=== PATIENT | female | born 1990 | race African-American/Black ===

== ENCOUNTER 2017-05-15 08:45 | Emergency (ER) | payer BC, OTHER ==
[~2017-05-15] VITALS: Ht 165.1 cm; Wt 67.1 kg
[2017-05-15 09:20] LABS: ABSOLUTE NEUTROPHILS 15.6 thou/uL (1.4-8.2); BASOPHILS 0.2 % (0.0-2.0); EOSINOPHILS 0.1 % (0.0-3.0); HEMOGLOBIN 12.7 gm/dL (12.0-15.0); LYMPHOCYTES 4.6 % (24.0-44.0); MCH 29.4 pg (26.0-34.0); MCHC 34.2 g/dL (28.0-37.0); MCV 85.9 fL (80.0-100.0); MONOCYTES 7.5 % (1.0-8.0); PLATELET COUNT 186 thou/uL (150-400); POLYS 87.6 % (36.0-66.0); RBC 4.31 mil/uL (4.20-5.00); RDW 12.8 % (10.5-14.5); WBC 17.8 thou/uL (4.0-11.0)
[2017-05-15 09:27] LABS: CREATININE 1.1 mg/dL (0.6-1.0); POTASSIUM 3.2 mmol/L (3.5-5.1)
[2017-05-15 09:33] LABS: ALBUMIN 3.5 g/dL (3.4-5.0); TOTAL BILIRUBIN 1.1 mg/dL (<0.1-1.0); TOTAL PROTEIN 7.6 g/dL (6.4-8.2)
[2017-05-15 09:57] LABS: URINE BILIRUBIN NEGATIVE (Negative); URINE BLOOD 1+ (Negative); URINE COLOR YELLOW; URINE GLUCOSE-RANDOM* NEGATIVE (Negative); URINE KETONES 3+ (Negative); URINE LEUKOCYTES 3+ (Negative); URINE NITRITE POSITIVE (Negative); URINE PROTEIN (DIPSTICK) 1+ (Negative)
[2017-05-15 09:59] LABS: URINE CLARITY HAZY
[2017-05-15 10:04] LABS: BACTERIA >30 Many /HPF (None Seen); CASTS None Seen /LPF (None Seen); CRYSTALS None Seen /LPF (None Seen); SQUAMOUS 0-3 Few /LPF (0-3); URINE RBC 3-10 Few /HPF (0-2); URINE WBC >25 Many /HPF (0-5)
[2017-05-15] MEDS ORDERED: BACTRIM DS TAB1 EACH PO (11:45)
[2017-05-15] MEDS ORDERED: ONDANSETRON HCL4 M2 PO (11:45)
[2017-05-15 11:57] VITALS: BP 93/46
== END 2017-05-15 11:56 | disposition home or self-care (01) ==
LOC: ER 08:45
PROVIDERS: Physician Assistant
DX: N12 Tubulo-interstitial nephritis, not specified as acute or chronic (principal); N30.90 Cystitis, unspecified without hematuria; E87.6 Hypokalemia

== ENCOUNTER 2017-05-15 15:55 | Inpatient (IN) | payer BC, OTHER ==
[~2017-05-15] VITALS: Ht 165.1 cm; Wt 70.3 kg
--- NOTE | ~2017-05-15 | 2DMMODE ---
[facility] [address] [place] [address] 2 D/M-MODE ECHOCARDIOGRAM Name: RODGER MCQUEEN Room #: 363-P ADM IN M.R.#: [id number] Admission: 05/15/17 Attend Phys: Royce Westbrook, Discharge: Date of : 89 Date of Service: 05/18/17 1606 Report #: [id number] THIS REPORT FOR: //name// APPROVED REPORT Study performed: 05/18/2017 14:53:54 EXAM: Comprehensive 2D, Doppler, and color-flow Echocardiogram Patient Location: Bedside Room #: 363 BSA: 1.77 HR: 58 bpm Rhythm: NSR/ Irregular Other Information Study Quality: Good Indications Palpitations Chest Pain Ventricular Bigemini 2D Dimensions RVDd: 39.77 mm LVEF(%): 58.24 (>50%) IVSd: 7.97 (7-11mm) LVOT Diam: 19.60 (18-24mm) LVDd: 46.68 mm PWd: 8.51 (7-11mm) Ascending Ao: 27.11 (22-36mm) LVDs: 32.35 (25-40mm) Aortic Root: 31.15 mm IVC: 21.00 mm TAPSE: 2.40 (<1.7) Fuentes's LVEF: 58.24 % Volumes Left Atrial Volume (Systole) Single Plane 4CH: 47.42 mL Single Plane 2CH: 41.41 mL LA ESV Index: 28.00 mL/m2 Aortic Valve AoV Peak Néstor.: 1.66 m/s AO Peak Gr.: 10.99 mmHg LVOT Max P.96 mmHg LVOT Max V: 1.11 m/s SANDRA Vmax: 2.03 cm2 [facility] [address] [place] [address] 2 D/M-MODE ECHOCARDIOGRAM Name: RICHARRODGER Room #: 363-[facility] IN M.R.#: [id number] Admission: 05/15/17 Attend Phys: Royce Westbrook, Discharge: Date of : 89 Date of Service: 05/18/17 1606 Report #: [id number] Mitral Valve E/A Ratio: 1.6 MV Decel. Time: 215.06 ms MV E Max Néstor.: 1.18 m/s MV A Néstor.: 0.72 m/s MV PHT: 62.37 ms IVRT: 69.20 ms Pulmonary Valve PV Peak Néstor.: 1.05 m/s PV Peak Gr.: 4.55 mmHg Pulmonary Vein P Vein S: 0.80 m/s P Vein A: 0.25 m/s P Vein D: 0.49 m/s P Vein A Dur.: 96.9 msec P Vein S/D Ratio: 1.63 Tricuspid Valve TR Peak Néstor.: 2.69 m/s RAP Estimate: 10.00 mmHg TR Peak Gr.: 28.91 mmHg PA Pressure: 39.00 mmHg Left Ventricle The left ventricle is normal size. There is normal LV segmental wall motion. There is normal left ventricular wall thickness. The left ventricular systolic function is normal. LVEF is 55-60%. The left ventricular diastolic function is normal. Right Ventricle The right ventricle is normal size. The right ventricular systolic function is normal. Atria The left atrium size is normal. The right atrium size is normal. Aortic Valve The aortic valve is normal in structure. No aortic regurgitation is present. There is no aortic valvular stenosis. Mitral Valve The mitral valve is normal in structure. There is no mitral valve regurgitation noted. No evidence of mitral valve stenosis. Tricuspid Valve The tricuspid valve is normal in structure. Trace to mild tricuspid regurgitation. [facility] [address] [place] [address] 2 D/M-MODE ECHOCARDIOGRAM Name: RODGER MCQUEEN Room #: 363-P ADM IN M.R.#: [id number] Admission: 05/15/17 Attend Phys: Royce Westbrook, Discharge: Date of : 89 Date of Service: 05/18/17 1606 Report #: [id number] Pulmonic Valve The pulmonary valve is normal in structure. Trace pulmonic regurgitation. Great Vessels The aortic root is normal in size. The ascending aorta is normal in size. IVC is dilated and collapses >50% with inspiration. Pericardium Trace to small pericardial effusion. <Conclusion> The left ventricular systolic function is normal. There is normal LV segmental wall motion. LVEF is 55-60%. Normal diastolic function Structural valve disease was absent. No significant regurgitant or stenotic lesions Trace to small pericardial effusion. <ELECTRONICALLY SIGNED> By: Rich Engel MD, [facility] 05/18/17 1606 1606 1606 Rich Engel MD, FAC /INF
--- NOTE | ~2017-05-15 | EKG ---
[address] [address] ELECTROCARDIOGRAM REPORT Name: RICHARRODGER Room #: 363-P ADM IN M.R.#: [id number] Admission: 05/15/17 Attend Phys: Royce Westbrook MD Discharge: Date of : 89 Report #: [id number] THIS REPORT FOR: //name// [facility] Test Date: 2017-05-18 Test Time: 11:44:20 Pat Name: RODGER MCQUEEN Department: Room: 363 P Gender: F Can Piler: sree : 1990 Requested By: Royce Westbrook Order Number: [id number] MD: Measurements Intervals [place] Rate: 46 P: 27 TN: 143 QRS: 62 QRSD: 103 T: 14 QT: 450 QTc: 394 Interpretive Statements Sinus bradycardia Supraventricular bigeminy Borderline T wave abnormalities Baseline wander in lead(s) V3,V4,V5 No previous ECG available for comparison [email or web address] By: [id number] 1144 Epiphany EpiphanyMD /EPI
[~2017-05-15 15:55] MED LIST: BACTRIM DS TAB1 EACH PO; ONDANSETRON HCL4 M2 PO
[2017-05-15 16:38] LABS: HEMATOCRIT 33.4 % (37.0-47.0); HEMOGLOBIN 11.6 gm/dL (12.0-15.0); MCH 29.6 pg (26.0-34.0); MCHC 34.8 g/dL (28.0-37.0); MCV 85.2 fL (80.0-100.0); PLATELET COUNT 170 thou/uL (150-400); RBC 3.92 mil/uL (4.20-5.00); RDW 12.6 % (10.5-14.5); WBC 16.8 thou/uL (4.0-11.0)
[2017-05-15 16:46] LABS: CALCIUM 8.4 mg/dL (8.5-10.1); CREATININE 1.1 mg/dL (0.6-1.0); POTASSIUM 3.2 mmol/L (3.5-5.1)
[2017-05-15 16:51] LABS: TOTAL BILIRUBIN 0.9 mg/dL (<0.1-1.0); TOTAL PROTEIN 6.8 g/dL (6.4-8.2)
[2017-05-15 17:09] VITALS: BP 78/37
[2017-05-15 17:15] VITALS: BP 105/61
[2017-05-15 17:28] LABS: ABSOLUTE NEUTROPHILS 15.8 thou/uL (1.4-8.2)
[2017-05-15 20:00] VITALS: BP 96/60
[2017-05-15 23:25] VITALS: BP 112/76
[2017-05-16 03:20] VITALS: BP 114/68
[2017-05-16 05:54] LABS: MCH 29.8 pg (26.0-34.0); WBC 15.9 thou/uL (4.0-11.0)
[2017-05-16 05:55] LABS: BASOPHILS 0.1 % (0.0-2.0); HEMATOCRIT 30.9 % (37.0-47.0); HEMOGLOBIN 10.7 gm/dL (12.0-15.0); LYMPHOCYTES 3.8 % (24.0-44.0); MCHC 34.6 g/dL (28.0-37.0); MCV 86.3 fL (80.0-100.0); MONOCYTES 7.9 % (1.0-8.0); PLATELET COUNT 161 thou/uL (150-400); POLYS 88.2 % (36.0-66.0); RBC 3.58 mil/uL (4.20-5.00); RDW 13.1 % (10.5-14.5)
[2017-05-16 06:04] LABS: CALCIUM 7.8 mg/dL (8.5-10.1); CREATININE 0.9 mg/dL (0.6-1.0); MAGNESIUM 1.7 mg/dL (1.8-2.4); POTASSIUM 3.5 mmol/L (3.5-5.1)
[2017-05-16 08:32] VITALS: BP 120/92
[2017-05-16 13:16] VITALS: BP 108/58
[2017-05-16 15:47] VITALS: BP 117/72
[2017-05-16 19:25] VITALS: BP 97/61
[2017-05-17 04:35] VITALS: BP 114/75
[2017-05-17 08:30] VITALS: BP 129/82
[2017-05-17 10:24] LABS: HEMOGLOBIN 10.3 gm/dL (12.0-15.0); MCH 29.7 pg (26.0-34.0); MCHC 34.2 g/dL (28.0-37.0); MCV 86.7 fL (80.0-100.0); RBC 3.46 mil/uL (4.20-5.00); RDW 13.8 % (10.5-14.5); WBC 12.8 thou/uL (4.0-11.0)
[2017-05-17 10:34] LABS: CALCIUM 8.1 mg/dL (8.5-10.1); CREATININE 0.9 mg/dL (0.6-1.0); MAGNESIUM 1.9 mg/dL (1.8-2.4); POTASSIUM 3.6 mmol/L (3.5-5.1)
[2017-05-17 12:09] VITALS: BP 104/63
[2017-05-17 17:00] VITALS: BP 129/89
[2017-05-17 20:00] VITALS: BP 113/72
[2017-05-18 03:45] VITALS: BP 110/74
[2017-05-18 05:30] LABS: HEMATOCRIT 29.8 % (37.0-47.0); HEMOGLOBIN 10.3 gm/dL (12.0-15.0); MCHC 34.4 g/dL (28.0-37.0); RBC 3.43 mil/uL (4.20-5.00); RDW 13.5 % (10.5-14.5); WBC 10.2 thou/uL (4.0-11.0)
[2017-05-18 05:41] LABS: CREATININE 0.8 mg/dL (0.6-1.0); MAGNESIUM 1.9 mg/dL (1.8-2.4); POTASSIUM 3.7 mmol/L (3.5-5.1)
[2017-05-18 08:09] VITALS: BP 127/88
[2017-05-18 08:17] VITALS: BP 110/73
[2017-05-18 11:27] VITALS: BP 120/78
[2017-05-18 16:33] VITALS: BP 105/74
[2017-05-18] MEDS ORDERED: NYSTATIN100000 UNI SW&SWALLOW (17:07)
[2017-05-18] MEDS ORDERED: CIPRO500 MG PO (17:11)
[2017-05-18 18:12] VITALS: BP 105/74
== END 2017-05-18 18:39 | disposition home or self-care (01) | DRG 872 ==
LOC: ER 15:55 → EROBS 16:43 → 3W 16:43
PROVIDERS: Internal Medicine; Nurse Practitioner; Physician Assistant
DX: A41.9 Sepsis, unspecified organism (principal); N12 Tubulo-interstitial nephritis, not specified as acute or chronic; M79.1 Myalgia; I95.9 Hypotension, unspecified; E87.6 Hypokalemia; G35 Multiple sclerosis; B96.20 Unspecified Escherichia coli [E. coli] as the cause of diseases classified elsewhere; Z87.442 Personal history of urinary calculi; Z79.899 Other long term (current) drug therapy; Z82.49 Family history of ischemic heart disease and other diseases of the circulatory system
CPT/HCPCS: 10879